=== PATIENT | female | born 1950 | race African-American/Black ===

== ENCOUNTER → 2017-02-17 13:56 | Outpatient (CLI) | payer MEDICARE, OTHER ==
[2012-02-15 07:12] VITALS: BMI 29.3
== END | disposition home or self-care (01) ==
LOC: D.MAMMO 10:30
DX: Z85.3 Personal history of malignant neoplasm of breast (principal); Z12.31 Encounter for screening mammogram for malignant neoplasm of breast

== ENCOUNTER 2018-01-31 08:00 | Outpatient (CLI) | payer MEDICARE, OTHER ==
[2012-02-15 07:12] VITALS: BMI 29.3
== END 2018-01-31 19:00 | disposition home or self-care (01) ==
LOC: D.MAMMO 08:00
DX: Z12.31 Encounter for screening mammogram for malignant neoplasm of breast (principal)

== ENCOUNTER 2018-03-11 08:00 | Outpatient (CLI) | payer MEDICARE ==
[2012-02-15 07:12] VITALS: BMI 29.3
== END 2018-03-11 09:00 | disposition home or self-care (01) ==
LOC: D.MAMMO 08:00
DX: Z85.3 Personal history of malignant neoplasm of breast (principal); R92.8 Other abnormal and inconclusive findings on diagnostic imaging of breast

== ENCOUNTER → 2019-11-15 10:09 | Outpatient (CLI) | payer MEDICARE ==
[2012-02-15 07:12] VITALS: BMI 29.3
== END | disposition home or self-care (01) ==
LOC: D.US 10:09
PROVIDERS: ATTEND Nurse Practitioner Family
DX: N18.3 Chronic kidney disease, stage 3 (moderate) (principal); I10 Essential (primary) hypertension; Z68.31 Body mass index [BMI] 31.0-31.9, adult

== ENCOUNTER → 2019-11-29 09:30 | Outpatient (CLI) | payer MEDICARE, BC ==
[2012-02-15 07:12] VITALS: BMI 29.3
[2019-11-29 11:20] LABS: CREATININE - SERUM 1.1 mg/dL (0.6-1.3)
== END | disposition home or self-care (01) ==
LOC: D.CT 11-28 13:00
PROVIDERS: ATTEND Family Medicine
DX: R06.00 Dyspnea, unspecified (principal)

== ENCOUNTER 2020-04-29 08:00 | Outpatient (CLI) | payer MEDICARE, BC ==
[2012-02-15 07:12] VITALS: BMI 29.3
== END 2020-04-29 08:01 | disposition home or self-care (01) ==
LOC: D.MAMMO 08:00
PROVIDERS: ATTEND Nurse Practitioner
DX: Z12.31 Encounter for screening mammogram for malignant neoplasm of breast (principal)

== ENCOUNTER → 2020-05-03 13:50 | Outpatient (CLI) | payer MEDICARE, BC ==
[2012-02-15 07:12] VITALS: BMI 29.3
== END | disposition home or self-care (01) ==
LOC: D.US 10:30
PROVIDERS: ATTEND Nurse Practitioner
DX: R92.8 Other abnormal and inconclusive findings on diagnostic imaging of breast (principal)

== ENCOUNTER → 2020-05-06 17:25 | Outpatient (CLI) | payer MEDICARE, BC ==
[2012-02-15 07:12] VITALS: BMI 29.3
== END | disposition home or self-care (01) ==
LOC: D.LABREF 17:25
PROVIDERS: ATTEND Orthopaedic Surgery
DX: M17.11 Unilateral primary osteoarthritis, right knee (principal)

== ENCOUNTER 2020-05-08 10:42 | Observation (INO) | payer MEDICARE, BC ==
[~2020-05-08] VITALS: Ht 175.3 cm; Wt 95.5 kg
[2020-05-14] MEDS ORDERED: TYLENOL W/CODEI1 TAB PO (13:39)
[2020-05-14] MEDS ORDERED: PEPCID40 MG PO (13:39)
[2020-05-14] MEDS ORDERED: K-DUR20 MEQ PO (13:40)
[2020-05-14] MEDS ORDERED: COZAAR100 MG PO (13:40)
[2020-05-14] MEDS ORDERED: EFFEXOR XR37.5 MG PO (13:40)
[2020-05-14] MEDS ORDERED: GABAPENTIN100 MG PO (13:41)
[2020-05-14] MEDS ORDERED: HCTZ25 MG PO (13:41)
[2020-05-14] MEDS ORDERED: PREVACID SOLUTA30 MG PO (13:41)
[2020-05-14] MEDS ORDERED: PROAIR HFA8.5 G1 INH (13:42)
[2020-05-14] MEDS ORDERED: COMBIGAN OPHT DR5 ML EACH EYE (13:42)
[2020-05-14] MEDS ORDERED: MELATONIN10 M1 PO (13:43)
[2020-05-14] MEDS ORDERED: STOOL SOFTENER250 MG PO (13:43)
[2020-05-14] MEDS ORDERED: PROBIOTIC BLEN1 EACH PO (13:44)
[2020-05-15 13:28] LABS: BACTERIA FEW HPF (NONE SEEN); BILIRUBIN NEGATIVE (NEGATIVE); KETONE NEGATIVE (NEGATIVE); NITRITE NEGATIVE (NEGATIVE); SQUAMOUS EPITHELIAL 0-5 HPF (0-4); UROBILINOGEN NORMAL mg/dL (< 2); WHITE CELLS - URINE OCC HPF (0-4)
[2020-05-15 13:48] LABS: ANION GAP 10.4 mmol/L (8-16); CALCIUM 9.7 mg/dL (8.5-10.1); CARBON DIOXIDE 29.8 mmol/L (21.0-32.0); CREATININE - SERUM 1.1 mg/dL (0.6-1.3); POTASSIUM - SERUM 3.2 mmol/L (3.5-5.1)
[2020-05-15 13:52] LABS: BASOPHILS 0.2 % (0-2); EOSINOPHILS 1.5 % (0-7); HEMATOCRIT 40.8 % (36.0-48.0); HEMOGLOBIN 13.2 g/dL (12-16); IMMATURE GRANULOCYTES 0.1 % (0-5); LYMPHOCYTES 27.6 % (15-50); MCH 30.9 pg (26.0-34.0); MCHC 32.4 g/dL (31.0-37.0); MCV 95.6 fL (80.0-100.0); MEAN PLATELET VOLUME 9.8 fL (7.4-10.4); MONOCYTES 6.4 % (2-11); NEUTROPHIL ABS# 5.81 10x3/uL (1.56-6.13); NEUTROPHILS 64.2 % (40-80); PLATELET COUNT 236 10x3/uL (130-400); RBC 4.27 10x6/uL (4.00-5.40); RDW 13.1 % (11.5-14.5); WBC 9.1 10x3/uL (4.8-10.8)
[2020-05-15 13:56] LABS: APTT 28.2 SECONDS (22.8-39.4); INR 1.07 (0.85-1.17); PROTIME 12.9 SECONDS (11.6-15.0)
[2020-05-21] VITALS (10 sets, daily range): BP systolic 120–173; BP diastolic 69–93; Ht 175.3 cm; Wt 95.5 kg
[2020-05-21] MEDS ORDERED: ANTIBIOTIC (06:28)
--- NOTE | 2020-05-21 09:05 | NUR ---
PT SPINAL DONE IN OR. SPINAL COMPLETED BY 711. PT LEG CLEANSED WITH HIBECLENS AND ALCOHOL PRIOR TO PREP, DRIED WITH STERILE TOWEL, THEN WIPED DOWN WITH ALCOHOL CIRCUMFERENTIALLY FROM THIGH TO TOES. RN IN STERILE ATTIRE TO PREP. PT RIGHT LEG PREPPED WITH CHLORAPREP X2 FROM THIGH TO TOES CIRCUMFERENTIALLY. CHLORAPREP DRY PRIOR TO PREP. TRAFFIC KEPT TO MINIMUM IN ROOM
--- NOTE | 2020-05-21 10:20 | NUR ---
PT RECEIVED VIA BED TO ROOM 1208 FROM RECOVERY. SPOUSE AT BEDSIDE. PT EASILY AROUSES, VOICES BEING SLEEPY AND REPORTS PAIN 2/10 AT THIS TIME. IV TO LEFT HAND WITH 1/2NS @ 50ML/HR INFUSING VIA PUMP. SITE WITHOUT REDNESS OR EDEMA. DRESSING TO RIGHT LOWER EXTREMITY C/D/I, SCD'S AND RADHA HOSE ON BILAT LOWER EXTREMITIES. ORIENTED TO BED CONTROLS, CL AND ROOM. ISP AT BEDSIDE, WILL EDUCATE PT ON USE AND ENCOURAGE USE UPON AWAKENING SHE DOZES OFF STAFF CONVERSES WITH HER. CL WITHIN REACH. ENCOURAGED TO CALL WITH NEEDS. CONTINUE POC
--- NOTE | 2020-05-21 17:51 | OP ---
PATIENT NAME: BALDEMAR ARENAS MEDICAL RECORD: [id number] :48 LOCATION:D. D.1208 ADMISSION DATE:05/21/20 SURGEON: BOAZ REAVES DO DATE OF OPERATION: 05/21/2020 PROCEDURE PERFORMED: Right total knee arthroplasty. PREOPERATIVE DIAGNOSIS: Right knee osteoarthritis. POSTOPERATIVE DIAGNOSIS: Right knee osteoarthritis. INDICATIONS: Ms. Arenas is a 69-year-old female that I have been treating for quite some time with injections and she finally got to the point where she was tired with dealing with the pain and affecting her activities of daily living. She was aware of the risk of this including infection, bleeding, damage to nerves or vessels, need for further surgery, continued pain, arthrofibrosis of the knee, need for further surgery, blood clots and fracture, failure of implants and even and she signed a consent. SURGEON: Boaz Reaves DO DESCRIPTION OF PROCEDURE: The patient was taken to the operative suite, given a spinal, laid in the supine position and given 2 grams of Ancef, 80 mg of gentamicin and a gram of TXA. She was then given some conscious sedation. The right lower extremity was then prepped and draped in sterile fashion. A timeout was performed and everyone was in agreeance with the correct side, site, patient and procedure. I then began by marking out an incision on the anterior knee and covered with Ioban. I then used a 10-blade scalpel and made careful dissection down to the knee itself, the knee capsule, and then used a fresh 10-blade, did a medial parapatellar approach, everted the patella, removed part of the fat pad, coagulated any bleeders with Aquamantys. I then milled down the patella and drilled for a 29 patellar poly. I then exposed the femur, removed the ACL and went to the femoral canal and then did a distal femur cut off the intramedullary guide. I then removed the bone and exposed the proximal tibia and cut it. I then removed the menisci, brought the knee into the extension block and it quite fit. I did a release of the MCL and then cut 2 more mm off the tibia with a 10 extension block and it fit very well. I then sized the femur to be an 8. I used a 4-in-1 cutting block, cut the femur, removed that bone, trialed E on the tibia, it fit well and then put the femoral trial on with a 10 poly, it fit very well, had good medial and lateral stability with varus and valgus stress in flexion and extension. I then drilled the lug holes in the femur and then decided to cement the tibia and the femur and put extra holes in the tibia and then irrigated that out, cemented the tibia and the implant, impacted into place, removed excess cement and repeated the process on the femur and then put a 10 poly in between medial congruent bearing, brought the knee to extension and cleaned out the patella, put cement in the holes and on the patella itself, squeezed this into place. I then removed the excess cement, put in 10% povidone iodine with 500 mL of normal saline solution and let it sit for 3 minutes, irrigated out with a liter of normal saline and injected the joint cocktail. The knee was then ranged it and it fit very well with the MC bearing poly. I then put in Enrike and vancomycin and tobramycin powder, closed the capsule with #1 Vicryl in onewub-cl-njnob fashion. This was completed by Christian Blakely, certified surgical assistant store manager sales and then he ran Stratafix on the capsule. Then, he closed the skin with 2-0 Vicryl in inverted interrupted fashion and put a ZipLine on the skin and dressed with Adaptic, 4 x 4s, ABD, cast padding and OPERATIVE REPORT [id number] BALDEMAR ARENAS 6-inch Dimas wrap. She was then awakened and taken to recovery in stable condition. Blood loss was approximately 200 mL. COMPLICATIONS: None. TRANSINT:[id number] Voice Confirmation ID: [id number] DOCUMENT ID: [id number] BOAZ REAVES DO at 1753 CC: [id number] DICTATION DATE: 05/21/20 0855 RENTAL AGENT: 05/21/20 1420 ADM IN [place] [id number] [place] [id number]
--- NOTE | 2020-05-21 23:30 | NUR ---
UNABLE TO VOID AFTER MULTIPAL ATTEMPTS WITH BEDPAN IN AND OUT CATH DONE AT THIS TIME 550CC EZIO URINE RETURNED
[2020-05-22] VITALS: BP 106/61
--- NOTE | 2020-05-22 02:01 | NUR ---
ALERT RESTING IN BED, CPM IN USE DENIES PAIN OR NEEDS AT THIS TIME, SEE SHIFT ASSESSMENT, CALL LIGHT IN REACH
[2020-05-22 04:05] VITALS: BP 122/66
[2020-05-22 05:44] LABS: HEMATOCRIT 31.5 % (36.0-48.0); HEMOGLOBIN 10.3 g/dL (12-16); MCH 30.3 pg (26.0-34.0); MCHC 32.7 g/dL (31.0-37.0); MCV 92.6 fL (80.0-100.0); MEAN PLATELET VOLUME 9.7 fL (7.4-10.4); RBC 3.4 10x6/uL (4.00-5.40); RDW 12.7 % (11.5-14.5)
--- NOTE | 2020-05-22 07:15 | NUR ---
UP TO BSC WITH TWO PERSON MIN ASSIST. VOIDED 300CC CLEAR YELLOW URINE WITHOUT DIFFICULTY. SKIN CARE PER STAFF. LUNGS ARE CLEAR BILATERALLY, NO COUGH NOTED. SKIN IS INTACT WITHOUT REDNESS EXCEPT INCISION TO RIGHT KNEE WHICH HAS A DRY INTACT DRESSING IN PLACE. IV TO LEFT FOREARM IS PATENT WITHOUT REDNESS AT INSERTION SITE. CPM TO RIGHT KNEE AT THIS TIME. DENIES NEEDS.
[2020-05-22 07:25] VITALS: BP 138/72
--- NOTE | 2020-05-22 07:46 | CN ---
PATIENT NAME:BALDEMAR GUZMAN MEDICAL RECORD: [id number] : 48 LOCATION:D. D.1208 ADMIT DATE: 05/21/20 ACCOUNT: [id number] CONSULTING PHYSICIAN: LA GRACIA MD REFERRING PHYSICIAN: CYNDEE REAVES, DATE OF CONSULTATION: 05/21/2020 The patient was seen approximately at 19:15. This consult is requested by Dr. Reaves for medical management. HISTORY OF PRESENT ILLNESS: This is a 69-year-old -Cymro female who was admitted by Dr. Reaves for elective right total knee arthroplasty. PAST MEDICAL HISTORY: She has a history of hypertension, hyperlipidemia, reflux, depression, breast cancer, as well as arthritis. PAST SURGICAL HISTORY: She has had cholecystectomy, shoulder surgery, breast lumpectomy, cataract repair, and wisdom teeth removed. HOME MEDICATIONS: Pepcid 40 mg in the evening, Lansoprazole 30 mg in the morning, potassium 20 mEq four a day, gabapentin 100 mg 4 times a day, ProAir HFA q.4-6 hours p.r.n., Breo p.r.n., tramadol p.r.n., losartan 100 mg once a day, Alprazolam 0.25 mg p.r.n. anxiety, HCTZ 25 mg once a day, venlafaxine ER 37.5 once a day, Combigan eyedrops twice a day OU, calcium 500 mg twice a day, docusate 100 mg every day p.r.n., and melatonin 10 mg q.h.s. ALLERGIES: DANIEL INHIBITORS, AMLODIPINE, AMOXICILLIN, AND BETA BLOCKERS. HABITS: No tobacco, alcohol, or drugs. FAMILY HISTORY: Father at 79. He had diabetes. Mother at 98. SOCIAL HISTORY: She is and retired. PHYSICAL EXAMINATION: VITAL SIGNS: Temperature 97.9, pulse 91, respirations 16, blood pressure 154/78. GENERAL: She is awake and alert. CPM machine is in place. HEENT: Grossly within normal limits. NECK: Supple. No JVD or bruit. HEART: Regular rate and rhythm without murmur. LUNGS: Clear to auscultation. ABDOMEN: Soft, flat, nontender. EXTREMITIES: She has no significant swelling and again the right leg is in CPM. IMPRESSION: 1. Hypertension. 2. Osteoarthritis, now status post right total knee arthroplasty. PLAN: We will continue her usual home medications. We will follow along while she is admitted. Thank you for this consult. TRANSINT:[id number] Voice Confirmation ID: [id number] DOCUMENT ID: [id number] CONSULT REPORT [id number] BALDEMAR GUZMAN WILLIAM MD at 0746 CC: [id number] DICTATION DATE: 05/22/2027 CHANGE CONTROL COORDINATOR: 05/22/20 0107 ADM IN [place] [id number] [place] [address]
--- NOTE | 2020-05-22 09:00 | NUR ---
ATE MOST OF BREAKFAST. TOOK AM MEDS WITHOUT DIFFICULTY. DENIES NEEDS.
--- NOTE | 2020-05-22 09:17 | NUR ---
ATE MOST OF BREAKFAST. REQUESTED AND GIVEN ONE HYDROCODONE PO FOR PAIN MANAGEMENT PRIOR TO THERAPY. WILL MONITOR. DENIES FURTHER NEEDS.
--- NOTE | 2020-05-22 09:17 | NUR ---
REQUESTED AND GIVNE ONE HYDROCODONE PO FOR C/O RIGHT KNEE PAIN LEVEL 7. WILL MONITOR.
--- NOTE | 2020-05-22 09:19 | NUR ---
LIZETT explained, signed, given, copy placed in MR
[2020-05-22 11:57] VITALS: BP 132/77
--- NOTE | 2020-05-22 13:00 | NUR ---
RESTING QUIETLY IN [place] AT BEDSIDE. DENIES NEEDS.
--- NOTE | 2020-05-22 13:43 | NUR ---
REQUESTED AND GIVEN ONE HYDROCODONE PO FOR C/O LEFT KNEE PAIN LEVEL 8. WILL MONITOR.
[2020-05-22 16:19] VITALS: BP 142/82
--- NOTE | 2020-05-22 16:30 | NUR ---
FOUND UP TO BSC PER SELF. DISCUSSED RATIONALE FOR CALLING FOR HELP. WAS CRYING IN PAIN AT THIS TIME. STATED NO RELIEF FROM HYDROCODONE EARLIER. DR. REAVES HERE. NEW ORDERS RECEIVED FOR PERCOCET.
--- NOTE | 2020-05-22 17:13 | NUR ---
GIVEN ONE PERCOCET PO FOR C/O LEFT KNEE PAIN LEVEL 10. WILL MONITOR.
--- NOTE | 2020-05-22 18:05 | NUR ---
SITTING UP IN BED EATING SUPPER. REPORTS GOOD RELIEF FROM PERCOCET. WILL CONTINUE TO MONITOR. AT BEDSIDE.
[2020-05-22 19:52] VITALS: BP 162/82
--- NOTE | 2020-05-22 20:00 | NUR ---
ALERT RESTING IN BED, CPM IN USE DENIES NEEDS AT THIS TIME, SEE SHIFT ASSESSMENT, CALL LIGHT IN REACH
--- NOTE | 2020-05-23 01:09 | NUR ---
PT MERCHANDISE MARKER LIGHT, PT SITTING ON SIDE OF BED, PT INST NOT TO GET UP WITHOUT ASSISTANCE, PT STATES "I NEED MY PAIN PILL, YOU SAID I COULD HAVE IT AT 1:00", ADM VERONICA PER MD ORDERS, SEE EMAR, ASSISTED PT BACK INTO BED, PT POSITIONED SELF, PT DENIES FURTHER NEEDS AT THIS TIME, TRASH REMOVED
[2020-05-23 05:00] VITALS: BP 173/92
[2020-05-23 06:31] LABS: HEMATOCRIT 34.6 % (36.0-48.0); HEMOGLOBIN 11.3 g/dL (12-16); MCH 30.2 pg (26.0-34.0); MCHC 32.7 g/dL (31.0-37.0); MCV 92.5 fL (80.0-100.0); MEAN PLATELET VOLUME 9.9 fL (7.4-10.4); RBC 3.74 10x6/uL (4.00-5.40); RDW 13.1 % (11.5-14.5)
[2020-05-23 07:40] VITALS: BP 172/97
[2020-05-23 07:53] LABS: BACTERIA FEW HPF (NONE SEEN); BILIRUBIN NEGATIVE (NEGATIVE); KETONE NEGATIVE (NEGATIVE); NITRITE NEGATIVE (NEGATIVE); SQUAMOUS EPITHELIAL OCC HPF (0-4); UROBILINOGEN NORMAL mg/dL (< 2); WHITE CELLS - URINE OCC HPF (0-4)
--- NOTE | 2020-05-23 07:58 | NUR ---
AWAKE AND ALERT. ORIENTED X3. NO C/O AT THIS TIME. CPM OFF. SITTING UP ON SIDE OF BED EATING BREAKFAST. LUNGS ARE CLEAR BILATERALLY, NO COUGH NOTED. USED IS INSTRUCTED. SL TO LEFT FA IS PATENT WITHOUT REDNESS AT INSERTION SITE. DENIES NEEDS.
--- NOTE | 2020-05-23 09:10 | NUR ---
ATE MOST OF BREAKFAST. TOOK AM MEDS WITHOUT DIFFICULTY. REQUESTED AND GIVEN ONE PERCOCET PO FOR PAIN MANAGEMENT PRIOR TO THERAPY. WILL MONITOR.
[2020-05-23 09:31] LABS: ANION GAP 11.5 mmol/L (8-16); CALCIUM 8.6 mg/dL (8.5-10.1); CARBON DIOXIDE 29.7 mmol/L (21.0-32.0); CREATININE - SERUM 1.3 mg/dL (0.6-1.3); POTASSIUM - SERUM 3.2 mmol/L (3.5-5.1)
[2020-05-23 12:10] VITALS: BP 155/92
--- NOTE | 2020-05-23 12:30 | NUR ---
REFUSED LUNCH AT THIS TIME. REPORTED BEING VERY SLEEPY FROM MEDS GIVEN. WILL MONITOR.
--- NOTE | 2020-05-23 14:30 | NUR ---
REHAB PRESCREENING Rehab referral received and chart reviewed. Ms. Arenas's insurance will require prior authorization. PT eval is completed, OT eval pending. Rehab will submit for auth when OT evaluation is in. Thank you for this referral! Janice Villasenor, WOMEN'S [employer] CO[employer] [facility]
--- NOTE | 2020-05-23 14:45 | NUR ---
RESTING QUIETLY IN BED. DENIES NEEDS.
[2020-05-23 15:23] VITALS: BP 153/78
--- NOTE | 2020-05-23 17:47 | NUR ---
AT BEDSIDE. AWAKE FINALLY ENOUGH TO EAT. WILL MONITOR.
--- NOTE | 2020-05-23 18:23 | NUR ---
SITTING UP ON SIDE OF BED EATING DINNER. NO CHANGES NOTED. DENIES NEEDS.
--- NOTE | 2020-05-23 19:15 | NUR ---
PT ASSISTED FROM SIDE OF BED TO LAYING SUPINE. CPM APPLIED TO RIGHT LEG. PT C/O PAIN AND GIVEN PRN PAIN MEDICATION IN ADDITION TO SCHEDULED MEDICATIONS. MEDICATION EDUCATION DONE AT THE BEDSIDE AND PATIENT VERBALIZED UNDERSTANDING. RIGHT KNEE WRAPPED WITH DANIEL BANDAGE AND IS CLEAN AND DRY. RADHA HOSE IN PLACE. PT GIVEN ICE WATER AND REPORTS NO OTHER NEEDS AT THIS TIME.
[2020-05-23 19:42] VITALS: BP 170/82
[2020-05-24 04:21] VITALS: BP 137/85
--- NOTE | 2020-05-24 05:38 | NUR ---
CPM APPLIED TO RIGHT KNEE AT 0445. PT RESTING COMFORTABLY.
[2020-05-24 07:20] VITALS: BP 133/68
--- NOTE | 2020-05-24 07:40 | NUR ---
PT RESTING QUIETLY IN BED. RESP EVEN AND UNLABORED. CPM IN PLACE TO RIGHT LOWER EXTREMITY. CPM REMOVED AT THIS TIME. PT REPORTS PAIN 5/10 AT THIS TIME. EDUCATED PT REGARDING NEXT DOSE DUE WITH PAIN MEDICATION. PT VOICES UNDERSTANDING. SL TO RIGHT FOREARM, SITE WITHOUT REDNESS OR EDEMA. DRESSING C/D/I TO RIGHT LOWER EXTREMITY. RADHA HOSE IN PLACE. PULSES PALPABLE. PT VOICES DIFFICULTY MOVING EXTREMITY, REQUIRING ASSISTANCE WITH SITTING UP ON SIDE OF BED. PT DENIES FURTHER NEEDS OR QUESTIONS AT THIS TIME. CL WITHIN REACH. ENCOURAGED TO CALL WITH NEEDS. CONTINUE POC
--- NOTE | 2020-05-24 10:10 | NUR ---
PT AMBULATING IN HALLWAY WITH PT. PT ONEYDA CANALES
[2020-05-24 11:00] VITALS: BP 126/74
[2020-05-24] MEDS ORDERED: PERCOCET 10-321 EAC1 PO (11:18)
[2020-05-24] MEDS ORDERED: ZOFRAN ODT4 MG/UDTAB PO (11:18)
[2020-05-24] MEDS ORDERED: ELIQUIS2.5 MG PO (11:18)
--- NOTE | 2020-05-24 12:19 | NUR ---
OT NOTE: PT PERFORMED WELL TODAY BUT REMAINS VERY LETHARGIC..APPARENTLY THE PAIN MEDS ARE MAKING HER VERY SLEEPY. SHE REPORTS THAT EVEN TYLENOL MAKES HER SLEEPY...BED MOB WITH MIN ASSIST FOR LE MGMT. SIT TO STAND WITH WALKER AND MIN ASSIST FROM CHAIR LEVEL; IN ROOM AMBULATION WITH WALKER AND CGA; CONT TO REUQIRE ASSIST WITH LE DRESSING; UE DRESSING AND GROOMING WITH SET UP; TOILET TRANSFER TO BS COMMODE WITH MIN/CGA; CLOTHING MGMT WITH CGA; AMB INTO HALLWAY GREATER THAN 75 FT WITH RW NIK LOPEZ, OTR/L [phone]
--- NOTE | 2020-05-24 12:48 | NUR ---
DISCHARGE EDUCATION PROVIDED TO PT. DRESSING CHANGED TO RIGHT LOWER EXTREMITY. ZIP LINE SUTURES INTACT. EDGES WELL APPROXIMATED. NO REDNESS OR DRAINAGE NOTED. APPLIED MEPILEX AG TO INCISION, WRAPPED WITH DANIEL WRAP. EDUCATED PT REGARDING CHANGING DRESSING TO INCISION AND BEING SURE NOT TO DISTURB SUTURES. PT VOICES UNDERSTANDING. EDUCATED ON MONITORING AND REPORTING ANY REDNESS, DRAINAGE OR BLEEDING. DISCUSSED PRESCRIBED MEDICATION AND CONTINUATION OF HOME MEDS AND STOPPING TYLENOL #3. PT VOICES UNDERSTANDING. SALINE LOC DISCONTINUED TO LEFT HAND. CATH INTACT. PT AND FAMILY DENIES FURTHER QUESTIONS OR CONCERNS. PROVIDED APPOINTMENT FOR OUT PATIENT THERAPY BEGINNING Wednesday05/27/2020 @ 1045AM. PT TAKEN OUT VIA W/C TO PRIVATE VEHICLE WITH ALL PERSONAL BELONGINGS.
--- NOTE | 2020-05-26 19:38 | MORECARE ---
CASE MANAGEMENT DISCHARGE SUMMARY PATIENT: BALDEMAR GUZMAN UNIT: [id number] ADM DATE: 05/21/20 AGE: 69 : 49 SEX: F ROOM/BED: D.1208 AUTHOR: DEL,DOC PHYSICIAN: REFERRING PHYSICIAN: CYNDEE REAVES DO DATE OF SERVICE: 05/26/20 Case Management Discharge Planning Summary DCP REVIEW SUMMARY ANTICIPATED D/C DATE: EXPECTED LOS : CASE STATUS: DCP Initiated INITIAL REVIEW: 05/21/2020 INITIAL REVIEWER: Dasha Good FINAL DISCHARGE DISPOSITION: : FINAL REVIEWER: FINAL REVIEW DATE: DCP Focus Questions & Answers - Added on: QUESTION: ANSWER : PATIENT: BALDEMAR GUZMAN ENCOUNTER: [id number] MEDICAL RECORD#: [id number] ADMISSION DATE: 05/21/2020 DISCHARGE DATE: 05/24/2020 ATTENDING MD: CYNDEE MARLOW : AGE: 69 MARITAL STATUS: M DC PLAN ID: [id number] FACILITY: [facility] PRINTED ON: 05/26/20 19:37 CT All edits/amendments must be made on the electronic document DICTATION DATE: 05/26/201936 INTERSTATE PLANNER: MURALI 05/26/201936 RPT#: [id number] DC DATE:05/24/20 STATUS: DIS IN [facility] [address] [place] [address] END OF REPORT
--- NOTE | 2020-05-26 20:09 | MORECARE ---
CASE MANAGEMENT DISCHARGE SUMMARY PATIENT: BALDEMAR GUZMAN UNIT: [id number] ADM DATE: 05/21/20 AGE: 69 : 49 SEX: F ROOM/BED: D.1208 AUTHOR: DEL,DOC PHYSICIAN: REFERRING PHYSICIAN: CYNDEE REAVES DO DATE OF SERVICE: 05/26/20 Case Management Discharge Planning Summary COMMENTS ENTERED DATE: 05/26/20 19:58 CT COMMENT TYPE: Discharge Planning REVIEWER: Dasha Good LATE ENTRY 05/24/20 CM spoke with patient to complete initial dc planning assessment. CM educated patient on the CM role and verbal consent given by patient to complete assessment. Patient lives at home with family. Patient is independent. At discharge patient plans to return home and feels this is a safe discharge. CM discussed availability of home health, rehab services, and medical equipment. Patient states that she has CPM, walker and elevated toilet seat. ASHLEY completed for Outpatient PT with [facility]. CM called Outpatient therapy and appointment set up for Wednesday05/27/20 @ 1045. Patient will have family to transport home. Patient denied known discharge needs at this time. CM will continue to follow and will assist as needed with dc plans/needs. DCP REVIEW SUMMARY ANTICIPATED D/C DATE: EXPECTED LOS : CASE STATUS: DCP Initiated INITIAL REVIEW: 05/21/2020 INITIAL REVIEWER: Dasha Good FINAL DISCHARGE DISPOSITION: : FINAL REVIEWER: FINAL REVIEW DATE: DCP Focus Questions & Answers - Added on: QUESTION: ANSWER : PATIENT: BALDEMAR GUZMAN ENCOUNTER: [id number] MEDICAL RECORD#: [id number] ADMISSION DATE: 05/21/2020 DISCHARGE DATE: 05/24/2020 ATTENDING MD: CYNDEE MARLOW : AGE: 69 MARITAL STATUS: M DC PLAN ID: [id number] FACILITY: [facility] PRINTED ON: 05/26/20 20:09 CT All edits/amendments must be made on the electronic document DICTATION DATE: 05/26/202008 PROGRAM PARAPROFESSIONAL: MURALI 05/26/202008 RPT#: [id number] DC DATE:05/24/20 STATUS: DIS IN [facility] [address] [place] [address] END OF REPORT
--- NOTE | 2020-05-28 14:58 | MORECARE ---
CASE MANAGEMENT DISCHARGE SUMMARY PATIENT: BALDEMAR GUZMAN UNIT: [id number] ADM DATE: 05/21/20 AGE: 69 : 49 SEX: F ROOM/BED: D.1208 AUTHOR: DEL,DOC PHYSICIAN: REFERRING PHYSICIAN: CYNDEE REAVES DO DATE OF SERVICE: 05/28/20 Case Management Discharge Planning Summary COMMENTS ENTERED DATE: 05/26/20 19:58 CT COMMENT TYPE: Discharge Planning REVIEWER: Dasha Good LATE ENTRY 05/24/20 CM spoke with patient to complete initial dc planning assessment. CM educated patient on the CM role and verbal consent given by patient to complete assessment. Patient lives at home with family. Patient is independent. At discharge patient plans to return home and feels this is a safe discharge. CM discussed availability of home health, rehab services, and medical equipment. Patient states that she has CPM, walker and elevated toilet seat. ASHLEY completed for Outpatient PT with [facility]. CM called Outpatient therapy and appointment set up for Wednesday05/27/20 @ 1045. Patient will have family to transport home. Patient denied known discharge needs at this time. CM will continue to follow and will assist as needed with dc plans/needs. DCP REVIEW SUMMARY ANTICIPATED D/C DATE: EXPECTED LOS : CASE STATUS: DCP Initiated INITIAL REVIEW: 05/21/2020 INITIAL REVIEWER: Dasha Good FINAL DISCHARGE DISPOSITION: : FINAL REVIEWER: FINAL REVIEW DATE: DCP Focus Questions & Answers - Added on: QUESTION: ANSWER : PATIENT: BALDEMAR GUZMAN ENCOUNTER: [id number] MEDICAL RECORD#: [id number] ADMISSION DATE: 05/21/2020 DISCHARGE DATE: 05/24/2020 ATTENDING MD: CYNDEE MARLOW : AGE: 69 MARITAL STATUS: M DC PLAN ID: [id number] FACILITY: [facility] PRINTED ON: 05/28/20 14:58 CT All edits/amendments must be made on the electronic document DICTATION DATE: 05/28/201457 MERCHANDISE FLOW TEAM LEADER: MURALI 05/28/201457 RPT#: [id number] DC DATE:05/24/20 STATUS: DIS IN [facility] [address] [place] [address] END OF REPORT
== END 2020-05-24 12:57 | disposition home or self-care (01) ==
LOC: D.M3 05-21 05:30 → D.SDCHOLD 05-21 05:30 → OBSVTIME 05-21 06:51 → D.MS 05-21 07:00 → D.OPS 05-21 07:00 → EDSTATUS 05-21 07:00 → D.M3 05-21 09:15 → D.MS 05-21 11:45 → D.M3 05-24 12:57
PROVIDERS: Family Medicine; ADMIT Orthopaedic Surgery; ATTEND Orthopaedic Surgery
DX: M17.11 Unilateral primary osteoarthritis, right knee (principal); I10 Essential (primary) hypertension; G62.9 Polyneuropathy, unspecified